=== PATIENT | male | born 1995 ===

== ENCOUNTER 2021-06-27 23:10 | Emergency (ER) | payer BC ==
[~2021-06-27] VITALS: Ht 182.9 cm; Wt 127.3 kg
[2021-06-27 23:19] VITALS: BP 150/111
== END 2021-06-27 23:42 | disposition left against medical advice (07) ==
LOC: ER 23:11
DX: R07.9 Chest pain, unspecified (principal); R06.02 Shortness of breath; Z53.21 Procedure and treatment not carried out due to patient leaving prior to being seen by health care provider
CPT/HCPCS: 93005